=== PATIENT | female | born 1980 | race Hispanic/Latino ===

== ENCOUNTER 2020-12-27 01:29 | Emergency (ER) | payer SELFPAY ==
[2020-12-27 02:03] LABS: Bilirubin Neg (Negative); Blood, Urine 150 (Negative); Clarity Cloudy (Clear); Glucose, Urine (Dipstick) Normal (Negative); Ketone, Urine 50 mg/dL (Negative); Leukocyte 500 (Negative); Nitrite Positive (Negative); Protein, Urine (Dipstick) 100 mg/dl (Neg-Trace); Urobilinogen Normal mg/dL (Less than 2)
[2020-12-27] MEDS ORDERED: Cephalexin 250 MG CAP ONE (02:25)
[2020-12-27 03:01] LABS: WBC/HPF Greater Than 50 HPF (0-3)
[2020-12-27 03:02] LABS: Bacteria/HPF 3+ HPF (None Seen); Squamous Epithelial 0-3 HPF (0-3)
[2020-12-27 03:03] LABS: Mucous/LPF 1+ LPF (<2+)
== END 2020-12-27 02:27 | disposition home or self-care (01) ==
LOC: CSHERS 01:29
DX: N39.0 Urinary tract infection, site not specified (principal)
CPT/HCPCS: 81003; 81015; 87077; 87086; 87186; 99284